=== PATIENT | female | born 1980 | race Caucasian/White ===

== ENCOUNTER 2018-06-25 14:00 | Outpatient (CLI) | payer OTHER ==
[2018-06-25 14:37] LABS: BILIRUBIN,URINE NEGATIVE (NEGATIVE); GLUCOSE, URINE (UA) NEGATIVE (NEGATIVE); KETONES,URINE (UA) NEGATIVE (NEGATIVE); LEUKOCYTE ESTERASE, URINE NEGATIVE (NEGATIVE); NITRITE,URINE NEGATIVE (NEGATIVE); OCCULT BLOOD,URINE NEGATIVE (NEGATIVE); PROTEIN,URINE NEGATIVE (NEGATIVE); UROBILINOGEN,URINE 0.2 (NORMAL) E.U./dL (NORMAL)
[2018-06-25 14:44] LABS: BASOPHILS % (AUTO) 0.4 %; EOSINOPHILS # (AUTO) 0.1 10^3/uL (0.0-0.7); EOSINOPHILS % (AUTO) 1.5 %; HGB - HEMOGLOBIN 12.7 g/dL (12.0-16.0); LYMPHOCYTES # (AUTO) 2.1 10^3/uL (1.5-3.5); LYMPHOCYTES % (AUTO) 25.4 %; MEAN CORPUSCULAR HEMOGLOBIN 30.9 pg (27.0-31.0); MEAN CORPUSCULAR HGB CONC 34.3 g/dL (32.0-36.0); MEAN CORPUSCULAR VOLUME 90.1 fL (81.0-99.0); MEAN PLATELET VOLUME 8.7 fL (7.9-10.8); MONOCYTES # (AUTO) 0.3 10^3/uL (0.0-1.0); MONOCYTES % (AUTO) 3.9 %; NEUTROPHILS # (AUTO) 5.7 10^3/uL (1.5-6.6); NEUTROPHILS % (AUTO) 68.8 %; PLT - PLATELET COUNT 221 10^3/uL (130-450); RED BLOOD COUNT 4.11 10^6/uL (4.20-5.40); RED CELL DISTRIBUTION WIDTH 12.2 % (12.0-15.0); WHITE BLOOD COUNT 8.2 x10^3/uL (4.8-10.8)
[2018-06-25 14:56] LABS: BACTERIA,URINE None Seen /HPF (None Seen); CLARITY,URINE CLEAR (CLEAR); RBC,URINE 0-5 /HPF (0-5); SQUAMOUS EPITHELIAL CELL,UR NONE SEEN (<= Few)
[2018-06-26 13:16] LABS: HEPATITIS B SURFACE ANTIGEN NON-REACTIVE (NON-REACTIVE); HEPATITIS C ANTIBODY NON-REACTIVE (NON-REACTIVE)
[2018-06-26 13:17] LABS: HIV AG/AB 4TH GEN NON-REACTIVE (NON-REACTIVE)
== END 2018-06-25 14:01 | disposition home or self-care (01) ==
LOC: LAB 14:00
PROVIDERS: ATTEND Nurse Practitioner Obstetrics & Gynecology
DX: Z36.9 Encounter for antenatal screening, unspecified (principal); Z13.79 Encounter for other screening for genetic and chromosomal anomalies
CPT/HCPCS: 36415; 81001; 81599; 85025; 86762; 86803; 86850; 86900; 86901; 87340; 87389

== ENCOUNTER 2018-07-23 10:38 | Outpatient (CLI) | payer OTHER ==
--- NOTE | 2018-07-23 16:04 | Ultrasound Report ---
Reason: SIZE, DATING AND VIABILITY Procedure Date: 07/23/2018 Accession Number: [id number] / [id number] Procedure: US - OB 14+ Weeks CPT Code: FULL RESULT: EXAM: LIMITED OBSTETRICAL ULTRASOUND EARLY SECOND TRIMESTER EXAM DATE: 07/23/2018 11:50 AM. CLINICAL HISTORY: Size and dating. COMPARISON: None. TECHNIQUE: Real-time sonographic evaluation of the fetus performed by the market relationship manager. Multiple independent sales representative static images were saved for review. DATING: EGA 14 weeks 3 days with EBENEZER 01/18/2019 based on LMP of 04/13/2018. EGA 15 weeks 3 days with EBENEZER 01/11/2019 based on the current ultrasound. GENERAL EVALUATION Patel . Cardiac activity: 140 bpm. movement: Visualized. Presentation: Variable. Placenta: Anterior position. No evidence for previa, lower placental edge 2.9 cm from the internal cervical os. Amniotic fluid: Subjectively normal. MVP 3.0 cm. BIOMETRY Bi-Parietal Diameter (BPD): 3.1 cm, 15 weeks 6 days. Head Circumference (HC): 11.6 cm, 15 weeks 5 days. Abdominal Circumference (AC): 9.1 cm, 15 weeks 2 days. Femur Length (FL): 1.7 cm, 14 weeks 6 days. Estimated Weight: 117 gm, 84th percentile for 14 weeks 3 days. ANATOMY Within the limits of early second trimester ultrasound, no anatomic abnormality is detected. The profile/nasal bone, visualized intracranial structures, nuchal region, anterior abdominal wall, appear normal for gestational age. Both upper and lower extremities are visualized. MATERNAL STRUCTURES Uterus: Unremarkable. Cervix: Long and closed. Transabdominal cervical length 4.6 cm. Right ovary/adnexa: Unremarkable. Left ovary/adnexa: Unremarkable. Free fluid: None. IMPRESSION: 1. Patel live intrauterine with gestational age 14 weeks 3 days based on LMP. 2. size is within expected limits for assigned dating. 3. Normal early second trimester anatomy. No anatomic abnormalities are seen at this time. 4. Cervix is long and closed measuring 4.6 cm transabdominally. 5. Anterior placenta without evidence of previa. Note: Detailed anatomic survey at 18-22 weeks is recommended for all fetuses evaluated prior to 18 weeks, as some structural abnormalities may be inapparent at earlier gestational ages. [facility]
== END 2018-07-23 10:39 | disposition home or self-care (01) ==
LOC: DI 10:38
PROVIDERS: ATTEND Registered Nurse
DX: Z36.9 Encounter for antenatal screening, unspecified (principal); Z32.01 Encounter for pregnancy test, result positive
CPT/HCPCS: 76805

== ENCOUNTER 2018-09-01 07:42 | Outpatient (CLI) | payer OTHER ==
--- NOTE | 2018-09-01 11:49 | Ultrasound Report ---
Reason: ENCOUNTER FOR SUPRVSN OF NORMAL ,SECOND Procedure Date: 09/01/2018 Accession Number: [id number] / [id number] Procedure: US - OB Detailed Eval CPT Code: FULL RESULT: EXAM: COMPLETE OBSTETRICAL ULTRASOUND EXAM DATE: 09/01/2018 09:10 AM. CLINICAL HISTORY: anatomic survey. COMPARISON: 09/01/2018 9:13 AM. TECHNIQUE: Real-time sonographic evaluation of the fetus performed by the dieing out machine operator. Multiple manufacturing sales representative static images were saved for review. DATING: Established EGA 21 weeks and 1 day with EBENEZER 01/11/2019 based on previous ultrasound. EGA 20 weeks 1 day with EBENEZER 01/18/2019 based on last menstrual period. EGA 20 weeks 3 days with EBENEZER 01/16/2019 based on the current ultrasound. GENERAL EVALUATION Patel . Cardiac activity: The heart rate is irregular ranging from 71 to approximately 142 bpm. movement: Visualized. Presentation: Breech Placenta: Anterior position. No evidence for previa. Umbilical cord: 3 vessel cord. Central placental cord origin. Amniotic fluid: Subjectively normal. MVP 4.6 cm. BIOMETRY Bi-Parietal Diameter (BPD): 4.7 cm, 20 weeks 2 days Head Circumference (HC): 18.3 cm, 20 weeks 5 days Abdominal Circumference (AC): 15.4 cm, 20 weeks 4 days Femur Length (FL): 3.3 cm, 20 weeks 2 days Estimated Weight: 357 gm, 17th percentile for 20 weeks and 3 days. ANATOMY The lower spine could not be visualized due to position. There is an echogenic retrocardiac thoracic mass which measures up to 2.2 cm. This also precludes adequate evaluation of the diaphragm and the relationship between the mass and the diaphragm is not fully established, the mass is likely supradiaphragmatic. Subjectively, there is mass-effect of the mass upon the heart. The intracranial structures, profile, face/nose/lips, 4 chamber heart and outflow tracts, stomach, abdominal wall and cord insertion, kidneys, bladder, and extremities were visualized and demonstrate no abnormality. MATERNAL STRUCTURES Uterus: Unremarkable. Cervix: Long and closed. Transabdominal length 5.3 cm. Right ovary/adnexa: Unremarkable. Left ovary/adnexa: Unremarkable. Free fluid: None. IMPRESSION: 1. Patel live intrauterine with gestational age 20 weeks 3 days based on current ultrasound. 2. Intrauterine growth retardation as described above. 3. Abnormal anatomy survey with detection of a thoracic mass, irregular heart rate and incomplete evaluation of the diaphragm in the lower spine. Recommendation: M referral [facility] The above findings of echogenic thoracic mass, irregular heart rate and growth retardation were discussed with Hali Segura by Dr. Festus Villanueva at 10:13 hrs on 09/01/18.
== END 2018-09-01 07:43 | disposition home or self-care (01) ==
LOC: DI 07:42
PROVIDERS: ATTEND Registered Nurse
DX: Z34.82 Encounter for supervision of other normal pregnancy, second trimester (principal)
CPT/HCPCS: 76811

== ENCOUNTER 2018-11-12 10:54 | Outpatient (CLI) | payer OTHER ==
[2018-11-12 12:10] LABS: HGB - HEMOGLOBIN 12.2 g/dL (12.0-16.0); MEAN CORPUSCULAR HEMOGLOBIN 30.2 pg (27.0-31.0); MEAN CORPUSCULAR VOLUME 88.8 fL (81.0-99.0); MEAN PLATELET VOLUME 8.6 fL (7.9-10.8); RED BLOOD COUNT 4.03 10^6/uL (4.20-5.40); RED CELL DISTRIBUTION WIDTH 12.8 % (12.0-15.0); WHITE BLOOD COUNT 14.4 x10^3/uL (4.8-10.8)
== END 2018-11-12 10:55 | disposition home or self-care (01) ==
LOC: LAB 10:54
PROVIDERS: ATTEND Nurse Practitioner Obstetrics & Gynecology
DX: Z36.9 Encounter for antenatal screening, unspecified (principal)
CPT/HCPCS: 36415; 82950; 85027; 86592; 86850

== ENCOUNTER 2018-11-15 08:04 | Outpatient (CLI) | payer OTHER | END 2018-11-15 08:05 | disposition home or self-care (01) | LOC: LAB 08:04 | PROVIDERS: ATTEND Nurse Practitioner Obstetrics & Gynecology | DX: O99.810 Abnormal glucose complicating pregnancy (principal) | CPT/HCPCS: 36415; 82951; 82952 ==